=== PATIENT | female | born 1945 | race Caucasian/White ===

== ENCOUNTER 2022-07-03 11:07 | Outpatient (CLI) | payer OTHER, SELFPAY ==
--- NOTE | 2022-07-03 11:30 | CRLHL7_ITS ---
For Patients: As a result of the Century Cures Act, medical imaging exams and procedure reports are released immediately into your electronic medical record. You may view this report before your referring provider. If you have questions, please contact your health care provider. BILATERAL SCREENING MAMMOGRAM WITH COMPUTER-AIDED DETECTION AND TOMOSYNTHESIS TECHNIQUE: CC and MLO views were obtained. These mammographic images have been obtained using full-field digital technique. These mammographic images were interpreted with the benefit of computer-aided detection. Breast Tomosynthesis was used in this interpretation. COMPARISON FILM: 07/02/21, 06/13/20, 06/06/19. FINDINGS: There are scattered areas of fibroglandular density IMPRESSION: There is no radiographic evidence for malignancy. ASSESSMENT: BI-RADS Category 1: Negative RECOMMENDATION: Routine screening mammogram in 1 year. A lay language report of this examination will be provided to the patient. Bart Calderón M.D. Diagnostic Radiologist [email or web address] FRANCIA/Dictated by: Bart Calderón MD @ 07/04/2022 12:28:00 PM (Electronically Signed)
== END 2022-07-03 11:08 | disposition home or self-care (01) ==
LOC: MAMMO 11:08
PROVIDERS: PCP Family Medicine; Visit Provider Family Medicine
DX: Z12.31 Encounter for screening mammogram for malignant neoplasm of breast (principal)
CPT/HCPCS: 77063; 77067

== ENCOUNTER 2023-07-06 11:15 | Outpatient (CLI) | payer OTHER, SELFPAY ==
--- NOTE | 2023-07-06 11:30 | CRLHL7_ITS ---
For Patients: As a result of the Cures Act, medical imaging exams and procedure reports are released immediately into your electronic medical record. You may view this report before your referring provider. If you have questions, please contact your health care provider. BILATERAL SCREENING MAMMOGRAM WITH COMPUTER-AIDED DETECTION AND TOMOSYNTHESIS TECHNIQUE: CC and MLO views were obtained. These mammographic images have been obtained using full-field digital technique. These mammographic images were interpreted with the benefit of computer-aided detection. Breast Tomosynthesis was used in this interpretation. COMPARISON FILM: 07/03/22, 07/02/21, 06/13/20. FINDINGS: There are scattered areas of fibroglandular density IMPRESSION: There is no radiographic evidence for malignancy. ASSESSMENT: BI-RADS Category 1: Negative RECOMMENDATION: Routine screening mammogram in 1 year. A lay language report of this examination will be provided to the patient. Bart Calderón M.D. Diagnostic Radiologist [email or web address] CASEY/harish Transcribed: 5:00 p.mNayeli moreira/Dictated by: Bart Calderón MD @ 07/08/2023 10:49:00 AM (Electronically Signed)
== END 2023-07-06 11:16 | disposition home or self-care (01) ==
LOC: MAMMO 11:16
PROVIDERS: PCP Family Medicine; Visit Provider Family Medicine
DX: Z12.31 Encounter for screening mammogram for malignant neoplasm of breast (principal)
CPT/HCPCS: 77063; 77067

== ENCOUNTER 2024-03-15 06:13 | Day surgery (SDC) | payer OTHER, SELFPAY ==
[2024-03-15] VITALS (8 sets, daily range): BP systolic 125–173; BP diastolic 73–89; PULSE 56–76; RESP 14–18; TEMP 36.6–36.8; O2SAT 98–100; BMI 30.5
[2024-03-15] MEDS: LACTATED RINGERS 1000 ML 1,000 ML 35 ML IV (06:05)
--- OUTSIDE RECORDS SUMMARY | 2024-03-15 06:17 | XMS_ITS | Clinical Summary ---
Author Organization [facility] Address [place], [place] [address] Care Team Providers Care Manager Of Product Name Role Phone Marisa Noe MD Primary Care Provide r Allergies Active Allergy Reactions Criticality Noted Date Comments Adhesive Tape Rash 05/19/2009 Patient developed rash with latex/adhesive bandage. Diltiazem Rash 06/01/2009 Latex Itching,Erythema 05/19/2016 Naproxen Rash 09/16/2006 Sulfa (Sulfonamide Antibiotics) Rash 09/16/2006 Medications Medication Sig Dispensed Refills Start Date End Date Status cholecalciferol (VITAMIN D-3) 2,000 unit capsule Take 1 capsule by mouth 2 times daily. 0 01/07/2016 Active aspirin (ECOTRIN) 81 mg enteric coated tabletIndications:H ypertension, unspecified type Take 1 tablet by mouth once daily with a meal. 0 07/04/2020 Active fluticasone (50 mcg per actuation) nasal solution (FLONASE)Indication s:Allergic rhinitis SPRAY ONCE INTO EACH NOSTRIL ONE TO TWO TIMES DAILY 3 Bottle 3 08/10/2020 Active cyanocobalamin (Vitamin B-12) 1,000 mcg tabletIndications:B 12 deficiency Take 0.5 Tablets (500 mcg) by mouth once daily. 90 Tablet 3 12/24/2021 Active blood sugar diagnostic (Accu-Chek SmartView Test Strip) stripIndications:Di abetes mellitus due to underlying condition with diabetic nephropathy, without long-term current use of insulin (HC) Dispense item covered by pt ins.USE TO TEST BLOOD GLUCOSE ONCE DAILY 100 Each 3 09/26/2022 Active magnesium chloride (Slow-Mag) delayed release tabletIndications:L eg cramps Take 1 Tablet (71.5 mg) by mouth once daily with a meal. 90 Tablet 3 09/26/2022 Active coenzyme q10 100 mg capIndications:Musc le cramps Take 1 Capsule (100 mg) by mouth once daily. 90 Capsule 3 01/09/2023 Active atorvastatin (LIPITOR) 20 mg tabletIndications:H yperlipidemia, unspecified hyperlipidemia type Take 1 Tablet (20 mg) by mouth once daily with evening meal. 90 Tablet 3 10/15/2023 Active metFORMIN (GLUCOPHAGE XR) 500 mg Extended-Release tabletIndications:T ype 2 diabetes mellitus without complication, without long-term current use of insulin (HC) Take 1 Tablet (500 mg) by mouth once daily with evening meal. 90 Tablet 3 10/15/2023 Active carvediloL (COREG) 3.125 mg tabletIndications:H ypertension, unspecified type,PVCs (premature ventricular contractions) Take 1 Tablet (3.125 mg) by mouth two times daily with meals. 180 Tablet 3 10/15/2023 Active gabapentin (NEURONTIN) 100 mg capsuleIndications: Acute midline low back pain without sciatica TAKE ONE OR TWO CAPSULES BY MOUTH AT BEDTIME 180 Capsule 3 12/10/2023 Active blood sugar diagnostic (Accu-Chek SmartView Test Strip) stripIndications:Co ntrolled type 2 diabetes mellitus without complication, without long-term current use of insulin (HC) Test one times per day. 100 Each 3 03/11/2024 Active blood sugar diagnostic (Blood Glucose Test) stripIndications:Co ntrolled type 2 diabetes mellitus without complication, without long-term current use of insulin (HC) Test one times per day. 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, without long-term current use of insulin 11/23/2021 Multinodular goiter 03/26/2018 Stress-induced cardiomyopathy 06/18/2017 NSTEMI (non-ST elevated myocardial infarction) 1 08/18/2016 Diabetes mellitus type 2, uncomplicated 01/07/20 16 Vitamin D deficiency 01/07/2016 Multinodular goiter 09/07/2013 PVCs (premature ventricular contractions) 2010 PVC's 04/24/2009 Hypertension 10/12/2008 Hypercholesterolemia 09/01/2008 Plantar fascial fibromatosis 09/28/2007 Myalgia and myositis, unspecified 07/22/2007 Other and unspecified hyperlipidemia 09/16/2006 Reflux esophagitis 09/16/2006 Benign Neoplasm of Colon 09/16/2006 Overview (08/29/2021): Colonoscopy 02/2009 normal repeat in 5 years Colonoscopy 08/2014 normal repeat in 5 years Colonoscopy 08/2021 TA, repeat in 7 years Resolved Problems Problem Noted Date Diagnosed Date Resolved Date Myocardial fibrosis, inferio r epicardicardial location 02/25/2011 04/06/2019 ASCVD (arteriosclerotic card iovascular disease) 09/01/2008 05/22/2009 Encounters Date Type Department Care Team Description 03/08/2024 Refill [facility] [address] [place] [address] Marisa Noe MD Refill Request (Accu-chek Smartview Test Strip) 02/16/2024 10:30 AM CDT Procedure Only [facility] [address] [facility] [address] Kamila Gallardo L Ac Acupuncture 02/16/2024 Travel 01/28/2024 8:40 AM CDT Office Visit [facility] [address] [facility] [place] [address] Marisa Noe MD Shoulder Pain/problem (Right shoulder, was worse when setting up the appointment./); Hand Pain/problem (Fingers catch mainly on the right hand. Hurt at times. Can't open a jar.) 01/28/2024 Travel 01/19/2024 Orders Only [facility] Scanner 1 scan: (1-Ord) [facility], 01/19/2024 01/18/2024 10:00 AM CDT Procedure Only [facility] [address] [place] [address] Kamila Gallardo L Ac Acupuncture 01/18/2024 Travel from Last 3 Months Immunizations Name Administration Dates Next Due AMB Influenza, IIV3 (Age >=3 years)(Flu Clinic Only) 04/24/2008 COVID-19 vaccine (Moderna 100mcg/0.5mL) PF, MDV 09/24/2021,05/01/2021,09/07/2020,2020 Hepatitis B (Adult) 04/29/2002,10/21/2001,2000 Influenza, High-dose Inactivated 018,03/25/2017,03/26/2016,2014,03/10/2014 Influenza, High-dose Quadriv alent Inactivated 04/17/2021,03/02/2020 Influenza, IIV3 (Age 6-35 mos) 04/24/2011,2009 Influenza, IIV3 (Age >=3 years) 03/28/20 13,03/11/2012,04/24/2011,2009,03/15/2009,04/24/2008,04/26/2007,1 Influenza, Inactivated AIIV4 (Age 65+ Years) Preserv Free 02/05/2023,02/19/2022 Influenza, Inactivated IIV3 (Age 65+ Years) Preserv Free 02/05/2023,04/06/2019,03/25/2017 Pneumococcal Poly,23-Valent (Pneumovax) 04/24/2011 Pneumococcal conj 13-Valent (Prevnar 13) 01/07/2016 Td (Age >=7 Years) 12/31/2004,07/24/2004 Tdap 11/25/2022,02/25/2012 Zoster (Zostavax-ZVL, live) 05/08/2011 Family History Medical History Relation Name Comments Heart Disease Mother Stroke Mother Other Sister ALS and bladder ca Relation Name Status Comments Brother Alive Mother (Age 52) stroke Sister Alive Social History Tobacco Use Types Packs/Day Years Used Date Smoking Tobacco: Never Smokeless Tobacco: Never Tobacco Cessation:Counseling Given: Yes Alcohol Use Standard Drinks/Week Comments No 0 (1 standard drink = 0.6 oz pur e alcohol) occasional PHQ-2 Answer Date Recorded PHQ-2 TOTAL SCORE 0 10/15/2023 Social Connections Answer Date Recorded Frequency of Communication with Friends and Fami ly 0 01/18/2024 Financial Resource Strain Answer Date R ecorded Difficulty of Paying Living Expenses 3 01/18/2024 Difficulty of Paying Living Expenses Not on file 01/18/2024 Food Insecurity Answer Date Recorded Worried About Running Out of Food in the Last Ye ar 1 01/18/2024 Transportation Needs Answer Date Record ed Lack of Transportation (Medical) 1 01/18/2024 Housing Stability Answer Date Recorded Unable to Pay for Housing in the Last Year 1 01/18/2024 Sex and Gender Information Value Date Recorded Sex Assigned at Not on file Gender Identity Not on file Sexual Orientation Not on file Obstetrics History Para Term AB IAB SAB Ectopic Multiple Livin g Live Births 2 2 2 Date Outcome GA Total Labor Labor/2nd/3rd Weight Sex Type Anes PTL Jackelin A1 A5 Name Clin Term Term Last Filed Vital Signs Vital Sign Reading Time Taken Comments Blood Pressure 114/72 01/28/2024 9:26 AM CDT Pulse 62 01/28/2024 9:26 AM CDT Temperature 36.6 ??C (97.8 ??F) 08/07/2020 1:35 PM CS T Respiratory Rate 20 12/11/2020 1:21 PM CDT Oxygen Saturation 98% 01/28/2024 9:26 AM CDT Inhaled Oxygen Concentration - - Weight 91.7 kg (202 lb 1.6 oz) 01/28/2024 9:26 A M CDT Height 168.9 cm (5' 6.5) 04/03/2023 10:33 AM CD T Body Mass Index 32.13 04/03/2023 10:33 AM CDT Plan of Treatment Upcoming Encounters Date Type Department Care Team (Late st Contact Info) Description 03/23/2024 10:00 AM CDT Office Visit [facility] [address] [place] [address] Tank Navarro DPM [address] [facility] [place] [address] 04/11/2024 10:00 AM CDT Procedure Only [facility] [address] [place] [address] Kamila Gallardo L Ac [address] [place] [address] 05/09/2024 10:30 AM CHART COLLECTOR Procedure Only [facility] [address] [facility] [address] Kamila Gallardo L Ac [address] [place] [address] Health Maintenance Due Date Last Done Comments Hepatitis C screening for ag e 18-79 1962 RSV vaccine for adults or (1 - 1-dose 60+ series) 2004 Zoster (shingles) series for age 50+ (2 of 3) 07/03/2011 05/08/2011 Medicare Wellness for age 65+ 06/14/2022 06/13/2021 COVID-19 vaccine series ( season) 2024 04/21/2023, 04/11/2022, 09/24/2021, Additional history exists Influenza for age 65+ 02/21/2024 02/05/2023 , 02/05/2023, 02/19/2022, Additional history exists BMI (ht and wt on same day) for age 18+ 04/03/2024 04/03/2023, 06/13/2021, 07/06/2019, Additional history exists Depression screening for age 12+ 10/14/2024 10/15/2023, 09/26/2022, 06/13/2021, Additional history exists Tetanus booster 11/25/2032 11/25/2022, 09/0 10/2011, 02/25/2012, Additional history exists Pneumococcal series for age 65+ Completed 6, 04/24/2011 DEXA/DXA scan for age 65+ Completed 06/17/2021, Tdap Completed 11/25/2022, 02/25/2012 Procedures Procedure Name Priority Date/Time Associated Diagnosis Comments ACUPUNCTURE PLAN OF CARE Routine 02/16/2024 10:31 AM CDT Other low back pain SCAN-EYE EXAM 01/19/2024 12:00 AM CDT ACUPUNCTURE PLAN OF CARE Routine 01/18/2024 9:52 AM CDT Other low back pain XR DXA BONE DENSITY 2 SITES AXIAL Routine 06/17/2021 1:26 PM CHART COLLECTOR Menopause from Last 3 Months or Most Recently Relevant to Health Maintenance Results * SCAN-EYE EXAM (01/19/2024 12:00 AM CDT) Scanner OTHER * (ABNORMAL) XR DXA BONE DENSITY 2 SITES AXIAL [21646.1] (06/17/2021 1:26 PM CHART COLLECTOR) Anatomical Region Laterality Modality Spine, HIPS, HIPL, HIPR Other Impressions 06/24/2021 12:17 PM CHART COLLECTOR Osteopenia. Significant decrease in BMD since prior scan in 2007 RECOMMENDATIONS: The National Osteoporosis Foundation recommends pharmacologic treatment for patients with T-scores of -2.5 or less, patients with prior history of fragility fractures, or patients with 10-year probability of greater than 3% at hips or greater than 20% of suffering major osteoporotic fractures. Recommend continued optimization of calcium and vitamin D intake through dietary means and/or supplementation and regular exercise. Consider pharmacologic therapy for osteopenia with increased fracture risk. Follow-up bone density reading in 2 years if therapy initiated to assess therapeutic efficacy. Jerica Lisa PA-C Narrative 06/24/2021 12:17 PM CHART COLLECTOR For Patients: Results are automatically released to your [facility] account once available, in compliance with federal regulations. This means that you may see your results before your provider has had a chance to review them. Please allow 2-3 business days for your provider to comment on the results. XR DXA Bone Mineral Density (BMD) EXAM LOCATION: [address] [address] PATIENT NAME: Amy Downey DATE OF : 1945 EXAM DATE: 06/17/2021 REQUESTING PROVIDER: Marisa Noe MD GENDER AT : female HEIGHT: 5' 6.54 (06/13/2021) WEIGHT: ??198 lb (06/13/2021) MENOPAUSAL STATUS: Postmenopausal RACE/ETHNICITY: White RISK FACTORS: Vitamin D Deficiency and White Race CURRENT MEDICATION FOR BONE LOSS: NONE INDICATION: Menopause COMPARISON DATE(S): 2007 DXA scans are compared to prior studies for a patient only when the two (or more) studies were performed on the same scanner. It is not possible to compare data generated on one scanner to data from another because there are not standards in DXA equipment. This applies even if the two scanners are made by the same human resources psychologist. PROCEDURE: Dual-energy x-ray absorptiometry performed with routine technique. Reporting is completed in the form of a T-score. The T-score represents the standard deviation from peak bone mass based on young healthy adult. A Z-score is used for diagnosis in premenopausal women, and for men under the age of 50. FINDINGS: RESULT LUMBAR SPINE L1 - L4 BMD: 1.067 g/cm2 T-Score: - 1.0 Z-Score: - 0.1 Change from prior in 2007: ??Decrease 6.2%. RESULTS FEMUR Left femoral neck BMD: 0.752 g/cm2 T-Score: - 2.1 Z-Score: - 0.6 Change from prior in 2007: ??Decrease 13.8%. Right femoral neck BMD: 0.742 g/cm2 T-Score: - 2.1 Z-Score: - 0.7 Change from prior in 2007: ??Decrease 9.0%. Left hip BMD: 0.812 g/cm2 T-Score: - 1.6 Z-Score: - 0.3 Change from prior in 2007: ??Decrease 12.8%. Right hip BMD: 0.824 g/cm2 T-Score: - 1.5 Z-Score: - 0.2 Change from prior in 2007: ??Decrease 9.8%. WHO criteria: Normal: T-score at or above -1 SD Osteopenia: T-score between -1.1 and -2.4 SD Osteoporosis: T-score at or below -2.5 SD FRAX RISK CALCULATION (USED FOR OSTEOPENIA ONLY): 10-year probability of major osteoporotic fracture: 14.5%. 10-year probability of hip fracture: 4.1%. Marisa Noe MD DEXA from Last 3 Months or Most Recently Relevant to Health Maintenance Advance Directives * Full Code (Latest Code Status on File) Date Activated Date Inactivated Comments 06/18/2017 11:42 AM 06/18/2017 8:07 PM Care Teams Manager Of Product Relationship Specialty Start Date End Date Marisa Noe MD [address] [place] [address] PCP - General Family Practice 08/07/20
[2024-03-15] MEDS: SODIUM CHLORIDE 0.9 % (FLUSH) 10 ML SYRINGE IVF (06:37)
[2024-03-15] MEDS: BUPIVACAINE 0.5 %/EPI 1:200K INJECTION (07:16)
[2024-03-15] MEDS: CEFAZOLIN 2 GM INJ IVP (07:17)
--- NOTE | 2024-03-15 07:40 | P.ORPRC_ITS ---
Procedure Note Date of procedure: 03/15/24 Procedure: Preop diagnosis: Right hand middle finger stenosing tenosynovitis Postop diagnosis: Right hand middle finger stenosing tenosynovitis Procedure: Right hand middle finger A1 jesi release Anesthesia: Local Surgeon: Abner Cope MD social and human services assistant: Hemalatha Mcwilliams PA-C EBL: 2 mL Complications: None Specimens: None Drains: None Preoperative antibiotics: Ancef 2 g Indications: The patient has a history of right upper extremity middle finger painful catching and locking. Despite appropriate non operative management including flexor tendon sheath corticosteroid injections they continue to have symptoms. Operative intervention was recommended. The risks, benefits alternatives and expected outcomes were discussed in detail. These included but were not limited to: Infection, bleeding, injury to blood vessel or nerve, venous thromboembolism. All questions were answered to their satisfaction. The patient was placed supine on the operating room table. Local anesthesia was established with 0.5% Marcaine with epinephrine and 2% lidocaine with epinephrine. The hand was prepped and draped in usual sterile fashion. A transverse incision was made centered over the base of the middle finger in the distal palmar crease. Subcutaneous dissection was taken through the palmar fascia to the flexor tendons with the tenotomy scissors. The A1 jesi was released with the 15 blade and tenotomy scissors. Active flexion and extension of the finger shows no catching or locking, no bowstringing of the flexor tendons. The wound was closed with interrupted nylon sutures. A dry dressing was applied. Sponge and needle counts were correct x 2. The patient tolerated the procedure well, there were no apparent complications. They were sent to same day surgery in satisfactory condition. Plan: Use of the hand as tolerates. Discontinue the intraoperative dressing on postoperative day 3 and may get the wound wet as tolerates. Follow up in the office in 2 weeks for a wound check and suture removal.
== END 2024-03-15 08:00 | disposition home or self-care (01) ==
LOC: OR 06:14
PROVIDERS: PCP Family Medicine; Visit Provider Orthopaedic Surgery
PROC: (CPT 26055; principal; 2024-03-15 07:15)
DX: M65.331 Trigger finger, right middle finger (principal); M65.841 Other synovitis and tenosynovitis, right hand
CPT/HCPCS: 26055; J0690; J3490; J7120

== ENCOUNTER 2024-07-21 08:01 | Outpatient (CLI) | payer OTHER, SELFPAY ==
--- NOTE | 2024-07-21 08:15 | CRLHL7_ITS ---
For Patients: As a result of the Century Cures Act, medical imaging exams and procedure reports are released immediately into your electronic medical record. You may view this report before your referring provider. If you have questions, please contact your health care provider. BILATERAL SCREENING MAMMOGRAM WITH COMPUTER-AIDED DETECTION AND TOMOSYNTHESIS TECHNIQUE: CC and MLO views were obtained. These mammographic images have been obtained using full-field digital technique. These mammographic images were interpreted with the benefit of computer-aided detection. Breast Tomosynthesis was used in this interpretation. COMPARISON FILM: 07/06/23, 07/03/22, 07/02/21 FINDINGS: There are scattered areas of fibroglandular density IMPRESSION: There is no radiographic evidence for malignancy. ASSESSMENT: BI-RADS Category 2: Benign RECOMMENDATION: Routine screening mammogram in 1 year. A lay language report of this examination will be provided to the patient. Bart Calderón M.D. Diagnostic Radiologist [email or web address] CASEY/naif / bM/Dictated by: Bart Calderón MD @ 07/21/2024 11:00:00 AM (Electronically Signed)
== END 2024-07-21 08:02 | disposition home or self-care (01) ==
LOC: MAMMO 08:03
PROVIDERS: PCP Family Medicine; Visit Provider Family Medicine
DX: Z12.31 Encounter for screening mammogram for malignant neoplasm of breast (principal)
CPT/HCPCS: 77063; 77067